=== PATIENT | male | born 1970 | race Caucasian/White ===

== ENCOUNTER 2016-12-18 10:13 | Emergency (ER) | payer OTHER ==
[~2016-12-18] VITALS: Wt 79.4 kg
[2016-12-18] MEDS ORDERED: HYDROCODONE/APAP (5/325) TAB PO ONE (12:30)
--- NOTE | 2016-12-18 12:38 | ERD ---
ER Documentation Chief Complaint Chief Complaint foot pain s/p trauma HPI This is a 46-year-old male who presents the emergency department today complaining of left ankle pain after falling off a 6 foot ladder 5 days ago. Patient states that he started having pain in his ankle last night. States he is taking aspirin for pain and has applied ice the area. Denies any previous trauma, fevers or chills. ROS All systems reviewed and are negative except as per history of present illness. Medications Home Meds Active Scripts Acetaminophen* (Tylophen*) 500 Mg Capsule, 1 CAP PO Q6H Y for PAIN AND OR ELEVATED TEMP, #30 CAP Prov:MALGORZATA HEIN PA-C 12/18/16 Naproxen* (Naprosyn*) 500 Mg Tablet, 500 MG PO BID Y for PAIN AND/OR INFLAMMATION, #30 TAB Prov:MALGORZATA HEIN PA-C 12/18/16 Hydrocodone/Acetaminophen ([place] 5-325 Tablet) 1 Each Tablet, 1 TAB PO Q6H Y for PAIN, #10 TAB Prov:MALGORZATA HEIN PA-C 12/18/16 Allergies Allergies: Coded Allergies: No Known Allergy (Unverified , 12/18/16) PMhx/Soc Medical and Surgical Hx: pt denies Medical Hx, pt denies Surgical Hx Hx Alcohol Use: No Hx Substance Use: No Hx Tobacco Use: No Smoking Status: Never smoker Physical Exam Vitals Vital Signs Date Time Temp Pulse Resp B/P Pulse Ox O2 Delivery O2 Flow Rate FiO2 12/18/16 10:21 98.5 74 16 133/96 99 Physical Exam Const: NAD Head: Atraumatic Eyes: Normal Conjunctiva ENT: Normal External Ears, Nose and Mouth. Neck: Full range of motion..~ No meningismus. Resp: Clear to auscultation bilaterally Cardio: Regular rate and rhythm, no murmurs Abd: Soft, non tender, non distended. Normal bowel sounds Skin: Abrasions eft tibia Back: No midline or flank tenderness MSk: Left ankle with no obvious deformity. Moderate effusion over medial lateral malleolus. Diffuse tenderness palpation. Effusion over foot. Decreased range of motion secondary to pain. Pulses 2+. Distal neurovascularly intact Neur: Awake and alert Psych: Normal Mood and Affect Results 24 hrs Current Medications Medications (Trade) Dose Ordered Sig/Al Route PRN Reason Start Time Stop Time Status Last Admin Dose Admin Acetaminophen/ Hydrocodone Bitart ([place] (5/325)) 1 tab ONCE ONCE PO 12/18/16 12:30 12/18/16 12:31 DC 12/18/16 12:32 DIAGNOSTIC IMAGING REPORT Patient: JAKY FISHER : 1970 Age: 46 Sex: M MR #: [id number] DOS: 12/18/16 0000 Ordering MD: MALGORZATA HEIN PA-C Location: [facility] Room/Bed: AMENDMENT: 12/18/2016 2:24:30 PM Kishan Torre M.d Please note that there is lateral soft tissue swelling and a small tibiotalar joint effusion. PROCEDURE: XR Ankle. CLINICAL INDICATION: Trauma TECHNIQUE: Three views of the left ankle were performed. COMPARISON: None. FINDINGS: There is no acute osseous or articular abnormality. No evidence for fracture. Bone mineral density is preserved. The articular surfaces are smooth without evidence of marginal erosions. Enthesopathic changes seen at the Achilles insertion. The soft tissues are intact without evidence of calcifications. IMPRESSION: 1. No acute osseous abnormality. RPTAT: PP .Kishan Torre MD, MD Date Time Electronically viewed and signed by .Kishan Torre MD, MD on 12/18/2016 14:24 .d/ CC: MALGORZATA HEIN PA-C DIAGNOSTIC IMAGING REPORT Patient: JAKY FISHER : 1970 Age: 46 Sex: M MR #: [id number] DOS: 12/18/16 0000 Ordering MD: MALGORZATA HEIN PA-C Location: [facility] Room/Bed: PROCEDURE: XR Left foot. CLINICAL INDICATION: Left foot pain, trauma, fall off ladder TECHNIQUE: Three views of the left foot were obtained. COMPARISON: No prior studies are available for comparison. FINDINGS: There is a probable small acute avulsion fracture fragment at the lateral aspect of the distal calcaneus near the extensor digitorum brevis origin. There is moderate lateral soft tissue swelling of the foot and ankle. Joint spaces are preserved. There is a small posterior calcaneal enthesophyte. IMPRESSION: 1. Small probable acute avulsion fracture fragment at the lateral margin of the distal calcaneus near the extensor digitorum brevis origin. 2. Moderate lateral soft tissue swelling of the foot and ankle. RPTAT: UU .Bronson Ayoub MD, Date Time Electronically viewed and signed by .Bronson Ayoub MD, on 12/18/2016 14: 25 .K/ CC: MALGORZATA HEIN PA-C DIAGNOSTIC IMAGING REPORT Patient: JAKY FISHER : 1970 Age: 46 Sex: M MR #: [id number] DOS: 12/18/16 0000 Ordering MD: MALGORZATA HEIN PA-C Location: [facility] Room/Bed: PROCEDURE: XR L-Spine. CLINICAL INDICATION: Low back pain. Trauma TECHNIQUE: AP, lateral, and cone down views of the lumbar spine were obtained. COMPARISON: None FINDINGS: The lumbar lordosis is maintained. The vertebral body heights are normal. Mild disc height loss at L5-S1 is seen. Multilevel endplate osteophytosis is seen. No acute fracture or subluxation is seen. No paravertebral soft tissue abnormality is seen. IMPRESSION: Mild degenerative spondylosis of the lumbar spine. RPTAT: HPNM Physician Oleg Date Time Electronically viewed and signed by Physician Oleg on 12/18/2016 14 :24 / CC: MALGORZATA HEIN PA-C Procedures/MDM This is a 46-year-old male who presents the emergency department today complaining of left foot and ankle pain after falling off a 6 foot ladder 5 days ago. On physical exam patient had diffuse tenderness as well as an effusion. I did asked patient about any back pain any denies any currently however he did indicate that he had some a few days ago and given that the patient fell from a high I did obtain images of the lumbar spine as well as the lower extremity Per the radiology report images of the left ankle show no evidence for fracture. The articular surfaces are smooth without evidence of marginal erosions. There are degenerative changes seen at the Achilles insertion. Soft tissues are intact without evidence of calcifications. There is lateral soft tissue swelling and a small tibiotalar joint effusion Images of the left foot show small probable acute avulsion fracture at the lateral aspect of the distal calcaneus near the extensor digitorum brevis there is moderate lateral soft tissue swelling of the foot and ankle. Joint spaces are preserved. There is a small posterior calcaneal enthesophyte Images of the lumbar spine show mild degenerative changes with mild disc height loss at L5 and S1. There is multilevel endplate osteophytosis. There is no acute fracture dislocation. Symptoms at this time most consistent with calcaneal fracture secondary to fall. Patient was given [place] here in the emergency department. He was placed in a splint given the radiology findings on the foot imaging. He was distally neurovascularly intact pre-and post splint application. Patient was given crutches to help ambulate. Patient will be given a prescription for short course of [place], Naprosyn and Tylenol for home. At this time the patient is stable for discharge and outpatient management. Patient should follow up with their PCP in the next 1-2 days. They may return to the emergency department sooner for any persistent or worsening of symptoms. Patient understood and agreed with the plan. Departure Diagnosis: Primary Impression: Calcaneal fracture Encounter type: initial encounter Calcaneus location: unspecified portion of calcaneus Fracture type: closed Fracture alignment: nondisplaced Laterality: left Qualified Code: S92.002A - Closed nondisplaced fracture of left calcaneus, unspecified portion of calcaneus, initial encounter Additional Impression: Fall Encounter type: initial encounter Qualified Code: W19.XXXA - Fall, initial encounter Condition: Fair MALGORZATA HEIN. PA-C Dec 18, 2016 12:38
--- NOTE | 2016-12-18 12:38 | ERD ---
ER Documentation Chief Complaint Chief Complaint foot pain s/p trauma HPI This is a 46-year-old male who presents the emergency department today complaining of left ankle pain after falling off a 6 foot ladder 5 days ago. Patient states that he started having pain in his ankle last night. States he is taking aspirin for pain and has applied ice the area. Denies any previous trauma, fevers or chills. ROS All systems reviewed and are negative except as per history of present illness. Medications Home Meds Active Scripts Acetaminophen* (Tylophen*) 500 Mg Capsule, 1 CAP PO Q6H Y for PAIN AND OR ELEVATED TEMP, #30 CAP Prov:MALGORZATA HEIN PA-C 12/18/16 Naproxen* (Naprosyn*) 500 Mg Tablet, 500 MG PO BID Y for PAIN AND/OR INFLAMMATION, #30 TAB Prov:MALGORZATA HEIN PA-C 12/18/16 Hydrocodone/Acetaminophen ([place] 5-325 Tablet) 1 Each Tablet, 1 TAB PO Q6H Y for PAIN, #10 TAB Prov:MALGORZATA HEIN PA-C 12/18/16 Allergies Allergies: Coded Allergies: No Known Allergy (Unverified , 12/18/16) PMhx/Soc Medical and Surgical Hx: pt denies Medical Hx, pt denies Surgical Hx Hx Alcohol Use: No Hx Substance Use: No Hx Tobacco Use: No Smoking Status: Never smoker Physical Exam Vitals Vital Signs Date Time Temp Pulse Resp B/P Pulse Ox O2 Delivery O2 Flow Rate FiO2 12/18/16 10:21 98.5 74 16 133/96 99 Physical Exam Const: NAD Head: Atraumatic Eyes: Normal Conjunctiva ENT: Normal External Ears, Nose and Mouth. Neck: Full range of motion..~ No meningismus. Resp: Clear to auscultation bilaterally Cardio: Regular rate and rhythm, no murmurs Abd: Soft, non tender, non distended. Normal bowel sounds Skin: Abrasions eft tibia Back: No midline or flank tenderness MSk: Left ankle with no obvious deformity. Moderate effusion over medial lateral malleolus. Diffuse tenderness palpation. Effusion over foot. Decreased range of motion secondary to pain. Pulses 2+. Distal neurovascularly intact Neur: Awake and alert Psych: Normal Mood and Affect Results 24 hrs Current Medications Medications (Trade) Dose Ordered Sig/Al Route PRN Reason Start Time Stop Time Status Last Admin Dose Admin Acetaminophen/ Hydrocodone Bitart ([place] (5/325)) 1 tab ONCE ONCE PO 12/18/16 12:30 12/18/16 12:31 DC 12/18/16 12:32 DIAGNOSTIC IMAGING REPORT Patient: JAKY FISHER : 1970 Age: 46 Sex: M MR #: [id number] DOS: 12/18/16 0000 Ordering MD: MALGORZATA HEIN PA-C Location: [facility] Room/Bed: AMENDMENT: 12/18/2016 2:24:30 PM Kishan Torre M.d Please note that there is lateral soft tissue swelling and a small tibiotalar joint effusion. PROCEDURE: XR Ankle. CLINICAL INDICATION: Trauma TECHNIQUE: Three views of the left ankle were performed. COMPARISON: None. FINDINGS: There is no acute osseous or articular abnormality. No evidence for fracture. Bone mineral density is preserved. The articular surfaces are smooth without evidence of marginal erosions. Enthesopathic changes seen at the Achilles insertion. The soft tissues are intact without evidence of calcifications. IMPRESSION: 1. No acute osseous abnormality. RPTAT: PP .Kishan Torre MD, MD Date Time Electronically viewed and signed by .Kishan Torre MD, MD on 12/18/2016 14:24 .d/ CC: MALGORZATA HEIN PA-C DIAGNOSTIC IMAGING REPORT Patient: JAKY FISHER : 1970 Age: 46 Sex: M MR #: [id number] DOS: 12/18/16 0000 Ordering MD: MALGORZATA HEIN PA-C Location: [facility] Room/Bed: PROCEDURE: XR Left foot. CLINICAL INDICATION: Left foot pain, trauma, fall off ladder TECHNIQUE: Three views of the left foot were obtained. COMPARISON: No prior studies are available for comparison. FINDINGS: There is a probable small acute avulsion fracture fragment at the lateral aspect of the distal calcaneus near the extensor digitorum brevis origin. There is moderate lateral soft tissue swelling of the foot and ankle. Joint spaces are preserved. There is a small posterior calcaneal enthesophyte. IMPRESSION: 1. Small probable acute avulsion fracture fragment at the lateral margin of the distal calcaneus near the extensor digitorum brevis origin. 2. Moderate lateral soft tissue swelling of the foot and ankle. RPTAT: UU .Bronson Ayoub MD, Date Time Electronically viewed and signed by .Bronson Ayoub MD, on 12/18/2016 14: 25 .K/ CC: MALGORZATA HEIN PA-C DIAGNOSTIC IMAGING REPORT Patient: JAKY FISHER : 1970 Age: 46 Sex: M MR #: [id number] DOS: 12/18/16 0000 Ordering MD: MALGORZATA HEIN PA-C Location: [facility] Room/Bed: PROCEDURE: XR L-Spine. CLINICAL INDICATION: Low back pain. Trauma TECHNIQUE: AP, lateral, and cone down views of the lumbar spine were obtained. COMPARISON: None FINDINGS: The lumbar lordosis is maintained. The vertebral body heights are normal. Mild disc height loss at L5-S1 is seen. Multilevel endplate osteophytosis is seen. No acute fracture or subluxation is seen. No paravertebral soft tissue abnormality is seen. IMPRESSION: Mild degenerative spondylosis of the lumbar spine. RPTAT: HPNM Physician Oleg Date Time Electronically viewed and signed by Physician Oleg on 12/18/2016 14 :24 / CC: MALGORZATA HEIN PA-C Procedures/MDM This is a 46-year-old male who presents the emergency department today complaining of left foot and ankle pain after falling off a 6 foot ladder 5 days ago. On physical exam patient had diffuse tenderness as well as an effusion. I did asked patient about any back pain any denies any currently however he did indicate that he had some a few days ago and given that the patient fell from a high I did obtain images of the lumbar spine as well as the lower extremity Per the radiology report images of the left ankle show no evidence for fracture. The articular surfaces are smooth without evidence of marginal erosions. There are degenerative changes seen at the Achilles insertion. Soft tissues are intact without evidence of calcifications. There is lateral soft tissue swelling and a small tibiotalar joint effusion Images of the left foot show small probable acute avulsion fracture at the lateral aspect of the distal calcaneus near the extensor digitorum brevis there is moderate lateral soft tissue swelling of the foot and ankle. Joint spaces are preserved. There is a small posterior calcaneal enthesophyte Images of the lumbar spine show mild degenerative changes with mild disc height loss at L5 and S1. There is multilevel endplate osteophytosis. There is no acute fracture dislocation. Symptoms at this time most consistent with calcaneal fracture secondary to fall. Patient was given [place] here in the emergency department. He was placed in a splint given the radiology findings on the foot imaging. He was distally neurovascularly intact pre-and post splint application. Patient was given crutches to help ambulate. Patient will be given a prescription for short course of [place], Naprosyn and Tylenol for home. At this time the patient is stable for discharge and outpatient management. Patient should follow up with their PCP in the next 1-2 days. They may return to the emergency department sooner for any persistent or worsening of symptoms. Patient understood and agreed with the plan. Departure Diagnosis: Primary Impression: Calcaneal fracture Encounter type: initial encounter Calcaneus location: unspecified portion of calcaneus Fracture type: closed Fracture alignment: nondisplaced Laterality: left Qualified Code: S92.002A - Closed nondisplaced fracture of left calcaneus, unspecified portion of calcaneus, initial encounter Additional Impression: Fall Encounter type: initial encounter Qualified Code: W19.XXXA - Fall, initial encounter Condition: Fair MALGORZATA HEIN. PA-C Dec 18, 2016 12:38
--- NOTE | 2016-12-18 14:23 | RADRPT ---
AMENDMENT: 12/18/2016 2:24:30 PM Kishan Torre M.d Please note that there is lateral soft tissue swelling and a small tibiotalar joint effusion. PROCEDURE: XR Ankle. CLINICAL INDICATION: Trauma TECHNIQUE: Three views of the left ankle were performed. COMPARISON: None. FINDINGS: There is no acute osseous or articular abnormality. No evidence for fracture. Bone mineral density is preserved. The articular surfaces are smooth without evidence of marginal erosions. Enthesopathi c changes seen at the Achilles insertion. The soft tissues are intact without evidence of calcificat ions. IMPRESSION: 1. No acute osseous abnormality. RPTAT: PP .Kishan Torre MD, Date Time Electronically viewed and signed by .Kishan Torre MD, MD on 12/18/2016 14:24 .d/
--- NOTE | 2016-12-18 14:24 | RADRPT ---
PROCEDURE: XR L-Spine. CLINICAL INDICATION: Low back pain. Trauma TECHNIQUE: AP, lateral, and cone down views of the lumbar spine were obtained. COMPARISON: None FINDINGS: The lumbar lordosis is maintained. The vertebral body heights are normal. Mild disc height loss at L5-S1 is seen. Multilevel endplate osteophytosis is seen. No acute fracture or subluxation is seen. No paravertebral soft tissue abnormality is seen. IMPRESSION: Mild degenerative spondylosis of the lumbar spine. RPTAT: HPNM Physician Oleg Date Time Electronically viewed and signed by Physician Oleg on 12/18/2016 14:24 /
--- NOTE | 2016-12-18 14:25 | RADRPT ---
PROCEDURE: XR Left foot. CLINICAL INDICATION: Left foot pain, trauma, fall off ladder TECHNIQUE: Three views of the left foot were obtained. COMPARISON: No prior studies are available for comparison. FINDINGS: There is a probable small acute avulsion fracture fragment at the lateral aspect of the distal calca neus near the extensor digitorum brevis origin. There is moderate lateral soft tissue swelling of the foot and ankle. Joint spaces are preserved. There is a small posterior calcaneal enthesophyte. IMPRESSION: 1. Small probable acute avulsion fracture fragment at the lateral margin of the distal calcaneus juice r the extensor digitorum brevis origin. 2. Moderate lateral soft tissue swelling of the foot and ankle. RPTAT: UU .Bronson Ayoub MD, Date Time Electronically viewed and signed by .Bronson Ayoub MD, on 12/18/2016 14:25 .K/
[2016-12-18] MEDS ORDERED: HYDR-906 PO (14:55)
[2016-12-18] MEDS ORDERED: ACET500C5 PO (14:55)
[2016-12-18] MEDS ORDERED: NAPR-260 PO (14:55)
[2016-12-18 15:32] VITALS: BP 132/78; PULSE 75; RESP 19
== END 2016-12-18 15:33 | disposition home or self-care (01) ==
LOC: FTE 10:13
DX: S92.002A Unspecified fracture of left calcaneus, initial encounter for closed fracture (principal); W11.XXXA Fall on and from ladder, initial encounter; Y92.9 Unspecified place or not applicable
CPT/HCPCS: 29125; 72100; 73610; 73630; Z7502; Z7610